=== PATIENT | female | born 1970 | race American Indian/Alaskan Native ===

== ENCOUNTER 2017-04-24 09:32 | Outpatient (CLI) | payer OTHER ==
--- NOTE | 2017-04-24 12:42 | Ultrasound Report ---
ULTRASOUND PELVIC COMPLETE ULTRASOUND TRANSVAGINAL HISTORY: Uterine leiomyoma. TECHNIQUE: Transabdominal and transvaginal ultrasound with color doppler interrogation. No comparison at this facility. The uterus is moderately enlarged and markedly heterogeneous. The uterus measures 15.3 x 12.5 x 12.5 cm. There are numerous heterogeneous uterine masses consistent with uterine fibroids. A 6.0 x 5.2 x 6.4 cm fibroid is identified in the lower anterior uterine wall. A 7.2 x 6.8 x 6.9 cm fibroid is identified in the midanterior wall. A 7.7 x 3.8 x 6.9 cm fibroid is identified in the manuela-fundal region. A 6.9 x 5.8 x 7.0 cm fibroid is identified in the lower posterior wall. An 8.1 x 7.1 x 6.9 cm fibroid is identified in the mid posterior wall. These fibroids appear to be solid with no areas of cystic change or large calcifications. There does appear to be increased flow to these fibroids on color Doppler interrogation. The endometrial stripe is not confidently identified secondary to the uterine fibroid disease. No gross endometrial abnormality is suspected. The ovaries are not visualized. No large adnexal cyst or mass. No pelvic fluid collection. IMPRESSION: Moderate to severe uterine fibroid disease as described.
== END 2017-04-24 09:33 | disposition home or self-care (01) ==
LOC: US 09:32
PROVIDERS: ATTEND Obstetrics & Gynecology Gynecology
DX: D25.9 Leiomyoma of uterus, unspecified (principal); N85.2 Hypertrophy of uterus
CPT/HCPCS: 76830; 76856

== ENCOUNTER 2017-09-16 10:50 | Observation (INO) | payer OTHER ==
--- NOTE | 2017-09-10 10:36 | Anesthesia Consultation ---
Anesthesia Consult and Med Hx Date of service: 09/10/17 - Airway Anesthetic Teeth Evaluation: Good, Chipped (bottom left molar) ROM Head & Neck: Adequate Mental/Hyoid Distance: Adequate Mallampati Class: Class II Intubation Access Assessment: Probably Good - Pulmonary Exam CTA: Yes - Cardiac Exam Cardiac Exam: RRR - Pre-Operative Health Status ASA Pre-Surgery Classification: ASA1 Proposed Anesthetic Plan: General Nerve Block: TAP - Pulmonary Hx Smoking: No Hx Asthma: No Hx Sleep Apnea: No - Cardiovascular System Hx Hypertension: No - Central Nervous System Hx Seizures: No CVA: No Hx Psychiatric Problems: No - Endocrine Hx End Stage Renal Disease: No Hx Insulin Dependent Diabetes: No Hx Hypothyroidism: No - Other Systems Hx Cancer: No Hx Obesity: No
[2017-09-10 11:46] LABS: Eosinophils % (Auto) 1.9 % (0.0-4.3); Hematocrit 39.5 % (30.3-42.9); Hemoglobin 13.2 gm/dl (10.1-14.3); Mean Corpuscular HGB Conc 33 % (30-34); Mean Corpuscular Hemoglobin 31 pg (28-32); Mean Corpuscular Volume 94 fl (79-97); Platelet Count 231 K/mm3 (140-440); Red Blood Count 4.23 M/mm3 (3.65-5.03); Red Cell Distribution Width 12.3 % (13.2-15.2); White Blood Count 4.1 K/mm3 (4.5-11.0)
[2017-09-10 12:40] LABS: Alanine Aminotransferase 12 units/L (7-56); Albumin 4.1 g/dL (3.9-5); Albumin/Globulin Ratio 1.1 %; Alkaline Phosphatase 52 units/L (35-129); Anion Gap 16 mmol/L; BUN/Creatinine Ratio 13; Blood Urea Nitrogen 9 mg/dL (7-17); Calcium 9.3 mg/dL (8.4-10.2); Carbon Dioxide 27 mmol/L (22-30); Chloride 100.9 mmol/L (98-107); Glucose 120 mg/dL (65-100); Potassium 3.6 mmol/L (3.6-5.0); Sodium 140 mmol/L (137-145); Total Protein 7.7 g/dL (6.3-8.2)
[~2017-09-16 10:50] MED LIST: LACTATED RINGERS 1,000 ML IV SCH; MARCAINE 0.25% INFILTRATI ONE; METHYLENE BLUE ONE; NEOSPORIN GU IR ONE; NEURONTIN PO NR; PEPCID PO NR; SUBLIMAZE IV SCH; VERSED IV NR
[2017-09-16] MEDS ORDERED: TRANSDERM-SCOP TD NR (12:00)
[2017-09-16] MEDS ORDERED: DECADRON IV ONE (12:22)
[2017-09-16] MEDS ORDERED: DILAUDID ONE (12:27)
[2017-09-16] MEDS ORDERED: DIPRIVAN 10 MG/ML IV ONE (12:27)
[2017-09-16] MEDS ORDERED: XYLOCAINE MPF 2% ONE (12:27)
[2017-09-16] MEDS ORDERED: ZEMURON IV ONE ×2 (12:28→16:49)
[2017-09-16] MEDS ORDERED: MARCAINE 0.5% 60 ML INFILTRATI ONE (12:43)
[2017-09-16] MEDS ORDERED: FLAGYL 500 MG/100 ML 500 MG/100 ML BAG IV NR (13:00)
[2017-09-16] MEDS ORDERED: MARCAINE 0.5% INFILTRATI NR (13:00)
[2017-09-16] MEDS ORDERED: CLONIDINE 1,000 MCG/10 ML VIAL EP SCH (13:00)
[2017-09-16] MEDS ORDERED: ANCEF/STERILE WATER 2 GM/20 ML IV NR (13:00)
--- NOTE | 2017-09-16 13:07 | Anesthesia Day of Surgery ---
Anesthesia Day of Surgery - Day of Surgery Patient Examined: Yes Patient H&P Reviewed: Yes Patient is NPO: Yes
[2017-09-16] MEDS ORDERED: CALCIUM CHLORIDE IV ONE (13:31)
[2017-09-16] MEDS ORDERED: THROMBIN (BOVINE) TP ONE (13:32)
[2017-09-16] MEDS ORDERED: DILAUDID IV PRN (13:51)
[2017-09-16] MEDS ORDERED: ZOFRAN ONE (14:31)
[2017-09-16] MEDS ORDERED: DECADRON ONE (14:31)
[2017-09-16] MEDS ORDERED: LACTATED RINGERS 1,000 ML ONE ×3 (14:38→21:20)
[2017-09-16] MEDS ORDERED: NACL ONE (14:43)
[2017-09-16] MEDS ORDERED: Vasostrict ONE (14:43)
[2017-09-16] MEDS ORDERED: ROBINUL ONE (14:52)
[2017-09-16] MEDS ORDERED: NEOSTIGMINE ONE (14:52)
[2017-09-16] MEDS ORDERED: NACL 0.9% IR ONE ×2 (14:57)
[2017-09-16] MEDS ORDERED: NEOSPORIN GU IR ONE (14:57)
[2017-09-16] MEDS ORDERED: Vasostrict IM ONE (14:58)
[2017-09-16] MEDS ORDERED: NACL INFILTRATI ONE (14:58)
[2017-09-16] MEDS ORDERED: LASIX ONE (18:17)
[2017-09-16] MEDS ORDERED: METHYLENE BLUE ONE (18:34)
[2017-09-16] MEDS ORDERED: REGLAN IV PRN (19:34)
[2017-09-16] MEDS ORDERED: MORPHINE IV PRN ×2 (19:34)
[2017-09-16] MEDS ORDERED: REGLAN PO PRN (19:34)
[2017-09-16] MEDS ORDERED: MILK OF MAGNESIA PO PRN (19:34)
[2017-09-16] MEDS ORDERED: PERCOCET 5/325 PO PRN (19:34)
[2017-09-16] MEDS ORDERED: SODIUM CHLORIDE FLUSH SYRINGE 10 ML IV PRN (19:34)
[2017-09-16] MEDS ORDERED: NARCAN 0.4 MG/1 ML IV PRN (19:34)
[2017-09-16] MEDS ORDERED: ZOFRAN IV PRN (19:34)
[2017-09-16] MEDS ORDERED: PHENERGAN PR PRN (19:34)
[2017-09-16] MEDS ORDERED: TYLENOL PO PRN (19:34)
[2017-09-16] MEDS ORDERED: ZOFRAN PO PRN (19:34)
[2017-09-16] MEDS ORDERED: AMBIEN PO PRN (19:43)
[2017-09-16] MEDS ORDERED: BENADRYL PO PRN (19:43)
[2017-09-16] MEDS ORDERED: BENADRYL IV PRN (19:43)
--- NOTE | 2017-09-16 19:52 | Short Stay Summary ---
Short Stay Documentation Date of service: 09/16/17 - History H&P: obtained from office - Allergies and Medications Current Medications: Allergies No Known Allergies Allergy (Unverified 09/02/17 11:46) Home Medications Medication Instructions Recorded Confirmed Last Taken Type No Known Home Medications [No 09/02/17 09/02/17 Unknown History Reported Home Medications] Active Medications Acetaminophen (Tylenol) 650 mg PO Q4H PRN PRN Reason: Pain, Mild (1-3) Bupivacaine HCl (Marcaine 0.5%) 40 ml INFILTRATI PREOP NR Stop: 09/16/17 23:59 Cefazolin Sodium (Ancef/Sterile Water 2 Gm/20 Ml) 2 gm IV PREOP NR Stop: 09/16/17 23:59 Celecoxib (Celebrex) 200 mg PO PREOP NR Stop: 09/16/17 23:00 Last Admin: 09/16/17 11:45 Dose: 200 mg Diphenhydramine HCl (Benadryl) 25 mg PO QHS PRN PRN Reason: Sleep Diphenhydramine HCl (Benadryl) 25 mg IV Q6H PRN PRN Reason: Itching Docusate Sodium (Colace) 100 mg PO BID JAKOB Estradiol (Climara) 0.1 mg TD 2XW JAKOB Famotidine (Pepcid) 20 mg PO PREOP NR Stop: 09/16/17 23:00 Last Admin: 09/16/17 11:45 Dose: 20 mg Fentanyl (Sublimaze) 100 mcg IV ONCE JAKOB Stop: 09/16/17 23:00 Last Admin: 09/16/17 13:05 Dose: 100 mcg Gabapentin (Neurontin) 600 mg PO PREOP NR Stop: 09/16/17 23:00 Last Admin: 09/16/17 11:45 Dose: 600 mg Hydromorphone HCl (Dilaudid) 0.5 mg IV Q10MIN PRN PRN Reason: Pain , Severe (7-10) Stop: 09/16/17 23:59 Lactated Ringer's (Lactated Ringers) 1,000 mls @ 75 mls/hr IV DIRECT JAKOB Last Admin: 09/16/17 11:35 Dose: 75 mls/hr Metronidazole (Flagyl 500 Mg/100 Ml) 500 mg in 100 mls @ 200 mls/hr IV PREOP NR Stop: 09/16/17 23:59 Cefazolin Sodium (Ancef/Ns 1 Gm/50 Ml) 1 gm in 50 mls @ 100 mls/hr IV Q8H [facility] PRN Reason: Protocol Stop: 09/17/17 04:29 Metronidazole (Flagyl 500 Mg/100 Ml) 500 mg in 100 mls @ 100 mls/hr IV Q8HR [facility] Stop: 09/17/17 06:59 Ketorolac Tromethamine (Toradol) 30 mg IV Q6H [facility] Stop: 09/21/17 19:59 Magnesium Hydroxide (Milk Of Magnesia) 30 ml PO Q4H PRN PRN Reason: Constipation Metoclopramide HCl (Reglan) 10 mg IV Q6H PRN PRN Reason: Nausea And Vomiting Metoclopramide HCl (Reglan) 10 mg PO Q6H PRN PRN Reason: Nausea And Vomiting Midazolam HCl (Versed) 2 mg IV PREOP NR Stop: 09/16/17 23:59 Last Admin: 09/16/17 13:05 Dose: 2 mg Morphine Sulfate (Morphine) 2 mg IV Q4H PRN PRN Reason: Pain, Moderate (4-6) Morphine Sulfate (Morphine) 4 mg IV Q4H PRN PRN Reason: Pain , Severe (7-10) Naloxone HCl (Narcan 0.4 Mg/1 Ml) 0.1 mg IV Q2MIN PRN PRN Reason: Res Rate </= 8 or 02 SAT < 92% Ondansetron HCl (Zofran) 4 mg PO Q8H PRN PRN Reason: Nausea And Vomiting Ondansetron HCl (Zofran) 4 mg IV Q8H PRN PRN Reason: Nausea And Vomiting Oxycodone/Acetaminophen (Percocet 5/325) 1 tab PO Q6H PRN PRN Reason: Pain, Moderate (4-6) Pantoprazole Sodium (Protonix) 40 mg IV QDAY [facility] Promethazine HCl (Phenergan) 25 mg CO Q6H PRN PRN Reason: Nausea And Vomiting Scopolamine (Transderm-Scop) 1 each TD PREOP NR Stop: 09/16/17 23:00 Last Admin: 09/16/17 11:40 Dose: 1 each Sodium Chloride (Sodium Chloride Flush Syringe 10 Ml) 10 ml IJ PRN PRN PRN Reason: LINE FLUSH Zolpidem Tartrate (Ambien) 5 mg PO QHS PRN PRN Reason: Sleep - Brief post op/procedure progress note Date of procedure: 09/16/17 Pre-op diagnosis: symptomatic uterine fibroids, enlarged uterus Post-op diagnosis: same Procedure: eua, laparoscopic, robot-assisted myomectomy, hysterectomy, BSO, cystoscopy Anesthesia: GETA Findings: enlarged fibroid uterus with multiple fibroids and with fundus palpable 2 FB below umbilicus, normal appearing bilateral tubes and ovaries. normal appearing bladder. no lesions or masses. No blue dye was seen in bladder but there appeared to be strong efflux of urine from both ureteral orifices Surgeon: MAAME PETER Pathology: list (uterus and cervix and fibroids (weighed 2.2 pounds), bilateral tubes, bilateral ovaries) Specimen disposition: to lab Condition: stable - Disposition Condition at discharge: Good Disposition: [id number] TO HOME OR SELFCARE Short Stay Discharge Plan Follow up with: PRIMARY CARE, [Primary Care Provider] - 7 Days
[2017-09-16] MEDS: TORADOL IV SCH (21:45)
[2017-09-16] MEDS ORDERED: CLIMARA TD SCH (22:00)
[2017-09-16] MEDS: PEPCID IV SCH (23:14)
[2017-09-16] MEDS: FLAGYL 500 MG/100 ML 500 MG/100 ML BAG IV SCH (23:15)
[2017-09-16] MEDS: COLACE PO SCH (23:15)
--- NOTE | 2017-09-16 23:43 | Operative Report ---
PREOPERATIVE DIAGNOSES: 1. Symptomatic uterine fibroids. 2. Markedly enlarged fibroid uterus. 3. Abdominal pelvic discomfort. 4. Right hydroureteronephrosis secondary to compression from fibroid uterus. 5. Urinary frequency. 6. Completed childbearing with undesired fertility. POSTOPERATIVE DIAGNOSES: 1. Symptomatic uterine fibroids. 2. Markedly enlarged fibroid uterus. 3. Abdominal pelvic discomfort. 4. Right hydroureteronephrosis secondary to compression from fibroid uterus. 5. Urinary frequency. 6. Completed childbearing with undesired fertility. PROCEDURE: EUA, laparoscopic robot-assisted myomectomy, hysterectomy, BSO, cystoscopy. ANESTHESIA: General. FINDINGS: The patient had a markedly enlarged fibroid uterus with multiple uterine fibroids. Her fundus was palpable at least 2 fingerbreadths inferior to the umbilicus on examination. However, her uterus was probably much larger than that in actuality. She had multiple pedunculated fibroids extending from the uterine fundus. She had a normal appearing bilateral tubes and bilateral ovaries. She had a normal appearing bladder. There were no lesions or masses. There was no gross hematuria. She was given methylene blue. However, there was very faint to no significant blue dye seen in the bladder. However, she was visualized to be having what appeared to be strong efflux of urine from both ureteral orifices. This was witnessed per all other staffs in the operating room at the time (certified nursing, mold yard supervisor Chidi; first dyer, Ilana, Credii tech, road supervisor of engines, ,). SURGEON: Karley Ceja MD WRINKLE CHASER: first emigdio Solis. PATHOLOGY: Uterus, cervix and fibroids (weight 2.2 pounds), bilateral tubes, bilateral ovaries. Specimens were sent to the lab. CONDITION: Stable. INDICATIONS: The patient is a 46-year-old -[place] female with symptomatic uterine fibroid associated with hydroureter. She has generalized abdominal pelvic discomfort and fullness. CT scan from 01/2017 showed an enlarged uterus measuring 9.5 x 18.6 x 19.0 cm with multiple subserosal, submucosal, exophytic, and pedunculated fibroids. There was mass effect on the bowel, compression at the left external iliac vein (remained patent), and mild right hydroureteronephrosis. She denies abnormal uterine bleeding. A Pap smear from 02/2017 was negative. Her serum creatinine was 0.81. She also reported urinary frequency, but denied other urinary complaints. She is status post Depo Lupron and on examination, her fundal height was felt to decrease from approximately 22 cm to approximately 16-18 cm. She was brought to the operating room today for EUA, laparoscopic robot-assisted hysterectomy, BSO, cystoscopy. DESCRIPTION OF PROCEDURE: The patient was brought to the operating room where general anesthesia was administered without difficulty. She was prepared and draped in usual sterile fashion, positioned in dorsal lithotomy position. A Awad catheter was placed in the bladder. Her uterus sounded to approximately 10-12 cm. A large Vcare device was placed in the uterus to provide a means to manipulate the uterus during surgery. Attention was turned to the abdomen where a 5 mm optical trocar was placed in the left lower quadrant subcostal margin midclavicular line. An 8 and 12 mm trocar was placed 8-10 cm to the right of midline. An 8 mm trocar was placed 8-10 cm to the left of the midline. A 12 mm trocar was placed approximately 3-4 fingerbreadths superior to the umbilicus in the midline to provide maximal exposure given her enlarged uterus. An additional 5 mm trocar was placed between the midline and the right superior most trocars. The robot was properly docked inside the abdomen and pelvis. The right retroperitoneal space was dissected. The ureter was clearly visualized. The IP ligament on the same side was clamped x 3 with Humalog and transected. The round ligament on the right side was cauterized and transected. Her uterus was noted to be twisted at this point. This was apparently due to the very enlarged uterine fibroids and the weight of the same. Her uterus was distorted. Efforts to untwist the uterus to provide a more normal appearing anatomy was not successful due to limited space in the abdomen and pelvis from her markedly enlarged uterus and multiple large fibroids. The bladder was dissected from the lower uterine segment. The right uterine vessels were skeletonized, cauterized, and then transected. Care was taken to observe the ureters on the right side multiple times to ensure that there was no injury due to the enlarged size of the uterus and the distorted nature of the uterus. The left retroperitoneal space was dissected. The ureter on that that side was visualized. The IP ligament on the same side was clamped x 3 with Humalog and then transected. The left round ligament was cauterized and then transected. The bladder was further dissected from the lower uterine segment on the patient's left side. The left uterine vessels were cauterized and then transected. It was obvious at this point that we were not be able to remove the uterus from the vagina without debulking it first. We proceeded to perform multiple myomectomies. A total of 4 large fibroids were removed to accomplish this process. The uterus was still markedly enlarged. There were other areas that we thought with fibroids, but actually were more consistent with a large adenomyoma. At this point, we morcellated some of the fibroids and a large portion of the uterus to a point where it could be removed from the pelvis via the vagina. So the uterus, fibroids, bilateral tubes, and bilateral ovaries were removed from the pelvis via the vagina. Hemostasis was obtained by closing the vaginal cuff in a running fashion using 0 V-Loc suture. A second layer of same suture was used to imbricate over the vaginal cuff to decrease the risk of future vaginal cuff dehiscence. Hemostasis was visualized. The abdomen and pelvis was copiously irrigated. Hemostasis was confirmed. Kayleigh was applied generously. Following this, PRP followed by PPP were applied over the bilateral retroperitoneal spaces and the vaginal cuff. A total of 3 sheets large Interceed were applied over same areas. The patient's appendix was visualized and appeared normal. We again followed the pathway of both ureters and they could be clearly seen and there was no suspicion for injury. At this point, she was given 10 mL of methylene blue. A diagnostic cystoscopy was performed with the findings noted above. As we saw very scant blue in the Awad bag but did not see any strong efflux of blue dye from either ureteral orifice, the patient was given Lasix followed by an additional 10 mL of methylene blue after a sufficient time had passed. We confirmed that there was no kinking of the IV. We did see what appeared to be strong efflux of urine from both ureteral orifices. However, we never saw a strong efflux of blue dye. Given the long time it can take before you see strong efflux of blue dye following administration of methylene blue, we felt that no further intervention was necessary. On vaginal examination, the patient was noted to have 2 superficial vaginal mucosal lacerations that were associated with removal of the uterus and fibroids from the pelvis via the vagina. These were repaired using 4-0 Vicryl suture in a running fashion without incident. All fascial incisions on the patient's abdomen were greater than 8 mm were closed with 0 Vicryl suture. Skin was closed in subcuticular fashion. Dermabond was applied over the skin incisions. The patient tolerated the procedure well and was taken to recovery room awake in stable condition. In summary, this is a 46-year-old -[place] female with a markedly enlarged uterus with multiple large fibroids, who is status post EUA, laparoscopic robot-assisted myomectomy, hysterectomy (with morcellation), BSO, and cystoscopy. Surgical time was approximately 4 hours and 45 minutes. A large part of this time was secondary to debulking the uterus by performing the myomectomy and the morcellation. Surgical time was more than 50% longer than what it would normally take to for me to perform the same case. JOB# [id number] SHELLIE/BLAKE
[2017-09-17] MEDS: ANCEF/NS 1 GM/50 ML 1 GM/50 ML BAG IV SCH ×2 (00:32→07:50)
[2017-09-17] MEDS: FLAGYL 500 MG/100 ML 500 MG/100 ML BAG IV SCH (05:49)
[2017-09-17] MEDS: TORADOL IV SCH ×3 (05:50→15:26)
[2017-09-17 06:39] LABS: Basophils % (Auto) 0.1 % (0.0-1.8); Hematocrit 37.4 % (30.3-42.9); Hemoglobin 12.9 gm/dl (10.1-14.3); Mean Corpuscular HGB Conc 35 % (30-34); Mean Corpuscular Hemoglobin 32 pg (28-32); Mean Corpuscular Volume 93 fl (79-97); Platelet Count 208 K/mm3 (140-440); Red Blood Count 4.05 M/mm3 (3.65-5.03); Red Cell Distribution Width 12.1 % (13.2-15.2); White Blood Count 12.5 K/mm3 (4.5-11.0)
[2017-09-17 06:58] LABS: Anion Gap 16 mmol/L; BUN/Creatinine Ratio 10; Blood Urea Nitrogen 8 mg/dL (7-17); Calcium 8.9 mg/dL (8.4-10.2); Carbon Dioxide 26 mmol/L (22-30); Chloride 103.2 mmol/L (98-107); Glucose 124 mg/dL (65-100); Potassium 3.4 mmol/L (3.6-5.0); Sodium 142 mmol/L (137-145)
[2017-09-17] MEDS: PEPCID IV SCH (09:27)
[2017-09-17] MEDS: COLACE PO SCH (09:27)
[2017-09-17] MEDS ORDERED: PROTONIX IV SCH (10:00)
[2017-09-17 18:24] VITALS: BP 139/85
== END 2017-09-17 16:15 | disposition home or self-care (01) ==
LOC: OR 10:50 → OB 19:34
PROVIDERS: ADMIT Obstetrics & Gynecology Gynecology; ATTEND Obstetrics & Gynecology Gynecology
DX: D25.9 Leiomyoma of uterus, unspecified (principal); N13.30 Unspecified hydronephrosis; R35.0 Frequency of micturition
CPT/HCPCS: 36415; 58571; 64450; 80048; 80053; 84703; 85025; 86850; 86900; 86901; 88307; 96365; 96366; 96367; 96375; 96376; A4217; C1765; C1782; G0378; J0690; J1100; J1170; J1885; J1940; J2250; J2405; J2704; J2710; J3010; J7120; Q9968; S2900